=== PATIENT | male | born 1970 | race Caucasian/White ===

== ENCOUNTER 2023-10-18 01:25 | Day surgery (SDC) | payer OTHER, SELFPAY ==
[2023-10-12 17:20] VITALS: BMI 38.7
--- NOTE | 2023-10-13 09:11 | PC.NURSE ---
Report to the Outpatient Waiting Room, entrance under the green pavilion located off [facility], at 1300 on 10-18-23. Planned Procedure Time: 1500. Time changes happen often and if your time is changed the preop area will call you the afternoon before. - You and your visitor will be asked to self-screen and do not enter if you have any COVID symptoms. - A mask is optional within the hospital at this time. Patients may have clear liquids (water, carbonated beverages, clear teas, apple juice) until 3 hours prior to surgery with a maximum of 20 ounces. 1200 - No food from midnight until time of surgery - Infants may have breast milk until 4 hours before surgery, formula 6 hours prior to surgery. - Children will be allowed to drink immediately following surgery. If applicable, please bring a bottle or sippy cup to assist with drinking. Juice, water, soda, and popsicles are readily available. For infants on formula, please bring formula the day of surgery. Pacifiers are allowed. Take the following medications with a SIP of water the morning of surgery: amlodipine, atenolol DO NOT STOP ANY OF YOUR OTHER PRESCRIPTION MEDICATIONS PRIOR TO SURGERY ?EXCEPT THE FOLLOWING Medications to discontinue per physician: vitamins and supplements Date to take last dose: 10-15-23 Please no make-up, nail luxembourger, hairspray, perfume, deodorant, or body powder the day of surgery. No jewelry (including any body piercings) or valuables the day of surgery, leave them at home. Please take a shower or bath the night before, or the morning of, surgery with an antibacterial soap. Wear comfortable, loose fitting clothing. Children are encouraged to wear pajamas. - Jewelry must be removed prior to entering the operating room. Rings and piercings that are not removed may be cut off. - The hospital will not accept responsibility for valuables. - Please leave all valuables, including medications, at home the day of surgery. If you are going home after surgery, a licensed hole digger truck driver must drive you home. - NO public transportation without another adult if you receive anesthesia. - We recommend that an adult stay with you for 24 hours following discharge. - We also recommend that you do not drive, make important decision, drink alcoholic beverages, or take any drugs that were not prescribed by your health care provider for at least 24 hours after your discharge time. For Pediatric surgeries, we recommend two adults accompany the child home. Follow any additional instructions given to you from your surgeon. If you or anyone in your household have experienced Covid symptoms in the past week, please notify your surgeon or the nurse liaison at the phone number below for possible testing. Telephone instructions given to Nik Jett and asked if any additional questions and then verbalized understanding. Patient advised to call surgeon office or pre surgery nurse liaison [phone] if any additional questions.
--- NOTE | 2023-10-18 13:38 | WPDHPUPDATE1 ---
History and Physical Update Update Date/Time: 10/18/23 13:38 History and Physical has been reviewed, including an updated exam of the patient. There are NO changes in the patient's condition. Risks, benefits, and alternatives have been discussed and questions answered. Patient agrees to proceed with procedure.
[2023-10-18] MEDS: ACETAMINOPHEN 500 MG TABLET 1000 MG PO (14:00)
[2023-10-18] MEDS: LACTATED RINGERS 1,000 ML 30 ML IV CONT (14:10)
--- NOTE | 2023-10-18 14:22 | ECG_ITS ---
SEE SCANNED COPY FOR CONFIRMED REPORT MTDD
[2023-10-18 14:25] VITALS: BP 170/88; PULSE 59; RESP 18; TEMP 36.7; O2SAT 99
--- NOTE | 2023-10-18 14:34 | WPDANESEPPF ---
Anes - Initial Pre Proc Eval Procedure: Operation Date: 10/18/23 15:00 Proposed Procedures p Right Knee Arthroscopic Partial Medial and Lateral Meniscectomies - Magdi Dunbar MD Date/Time: 10/18/23 14:34 Surgeon: Magdi Dunbar MD Pre Op Diagnosis: right knee medial and lateral meniscus tears Patient Data Age: 53 Gender: M Height: 1.78 m Weight: 118.9 kg Last Vital Signs Temp 98.1 F 10/18/23 14:25 Pulse 59 L 10/18/23 14:25 Resp 18 10/18/23 14:25 BP 170/88 H 10/18/23 14:25 Pulse Ox 99 10/18/23 14:25 O2 Del Method Room Air 10/18/23 14:25 Allergies Allergy/AdvReac Type Severity Reaction Status Date / Time bupropion Allergy Severe Other Verified 10/18/23 14:32 Home Medications Medication Instructions Recorded Confirmed Type amlodipine 10 mg tablet 10 mg PO DAILY 08/31/23 10/18/23 History atenolol 50 mg tablet 50 mg PO DAILY 08/31/23 10/18/23 History atorvastatin 40 mg tablet 40 mg PO DAILY 08/31/23 10/18/23 History benazepril 20 mg tablet 20 mg PO DAILY 08/31/23 10/18/23 History celecoxib 100 mg capsule 100 mg PO DAILY 08/31/23 10/18/23 History omeprazole 40 mg capsule,delayed 40 mg PO DAILY 08/31/23 10/18/23 History release glucosamine sulfate 500 mg tablet 500 mg PO DAILY 10/12/23 10/18/23 History (Glucosamine) Patient hx anesthesia problems: none Family hx anesthesia problems: none Results Review: All pre-operative results and documents have been reviewed as part of the pre-operative evaluation. [facility] Past Medical History Medical History Anesthesia complication Combative after anesthesia for Colonoscopy/EGD, all other surgeries he was fine except some PONV Bilateral primary osteoarthritis of knee GERD without esophagitis Hyperlipidemia Hypertension Obesity Other male erectile dysfunction Plantar fasciitis PONV (postoperative nausea and vomiting) Surgical History Surgical History History of arthroscopic surgery of shoulder Rt: Repair SLAP Lesion History of arthroscopy of both knees History of colonoscopy History of facial surgery Maxillofacial Fixation History of foot surgery Fusion Left Foot Bones, Midtarsal, Osteotomy History of hernia repair History of wisdom tooth extraction Family History Family History Mother Heart failure Father Heart disease Rheumatic fever Social History Social History Smoking packs per day: 1 Smoking cigarettes per day: 20.0 Years smoked: 10 Smoking pack-years: 10.00 Smoking status: Former smoker Tobacco type: cigarettes and cigars Second hand tobacco smoke exposure: No Smoking end date: 02/29/16 Alcohol intake: current Drinks per week: 12 Alcohol use details: beer Substance use: never Substance use type: does not use Do You Feel Safe in your Home?: Yes Lack of Transportation: No Lack of Food: Never True Current Housing: I Have Housing Concerned About Future Housing: No Difficulty Paying Gas/Electric Bills: No Difficulty Paying for Meds: No Currently Unemployed: No Education: Associate Degree Difficulty w/ Childcare or Family Care: No Living arrangements: with family Spiritual care concerns: No Anes - Eval Final PreProcedure Day of Procedure 10/18/23 14:34 Patient weight: obese Heart: regular rate and rhythm Lungs: clear to auscultation Airway: Mallampati scale class 1 Neurological: alert and oriented Last oral intake: >/= 8 hours ASA classification: II Emergent: no Anesthetic plan: proceed Anesthesia type and monitoring: general LMA and standard monitoring Results Review: All pre-operative results and documents have been reviewed as part of the pre-operative evaluation. HTN, hyperlipidemia, suspect O
[2023-10-18] MEDS: KETOROLAC 15 MG/ML VIAL (*BKC) IV PUSH (14:55)
[2023-10-18] MEDS: ceFAZolin 2 GM/D5W 50 ML 2 GM/50 ML BAG IVPB (15:23)
[2023-10-18] MEDS: BUPIVACAINE/EPINEPHRINE 0.5% 50 ML VIAL 20 ML INFILTRATE (15:53)
[2023-10-18 16:30] VITALS: BP 139/93; PULSE 73; RESP 13; TEMP 36.1; O2SAT 98
--- NOTE | 2023-10-18 16:44 | W.PM.PROC2 ---
Procedure Note - Detailed Date of Procedure 10/18/23 Pre-op Diagnosis right knee medial and lateral meniscus tears Post-op Diagnosis Same Procedure Performed Arthroscopic partial medial meniscectomy with chondroplasty, right knee. Surgeon Magdi Dunbar MD Anesthesia General Findings Medial tear at the posterior root and horn and anterior horn. Minimal lateral tear required anterior horn debridement. Lateral meniscus posterior horn with 1 cm minimal undersurface splitting without instability. Left in-situ. Medial femur chondromalacia grade 4, medial tibia grade 2. Lateral femur chondromalacia grade 0, lateral tibia grade 1. Patellar grade 1, trochlea grade 4. Description of Procedure The patient was identified and the surgical site confirmed and signed in the preoperative holding area. Antibiotics were started per protocol, and the patient was brought to the operative room and transferred to the OR table. A general anesthetic was administered. Supine position with the operative lower extremity position in the leg anglin after placement of a well padded tourniquet. The leg support was lowered and the contralateral limb was supported with a soft bolster. The knee was prepped and draped in the usual sterile fashion. A time-out was performed. The portal sites were marked and infiltrated with 0.5% Marcaine 20 mL. The limb was exsanguinated and the tourniquet inflated to 300 mL Hg. Standard inferolateral and inferomedial portals were established. Inflow was obtained with the saline pump. The camera was introduced. Diagnostic inspection of the joint was accomplished. The meniscus was debrided with the arthroscopic shaver and punches until stable. The radiofrequency probe was also used for further d?bridement. Chondroplasty was performed on medial femoral condyle and trochlea. Retropatellar fat pad hypertrophy and scarring treated with gentle debridement. The arthroscopic instruments were removed. The tourniquet released and wounds closed with subcutaneous 4-0 Monocryl absorbable suture. Steri strips and a sterile dressing were applied. A light elastic wrap was placed. The patient was extubated and brought to the recovery room in stable condition. Estimated Blood Loss 5 Drains No Complications No immediate complications Condition Stable Disposition PACU [facility] Billing Surgery - Charge Forward: Surgery Billing
[2023-10-18 16:45] VITALS: BP 128/82; PULSE 64; RESP 12; O2SAT 100
[2023-10-18 17:00] VITALS: BP 126/80; PULSE 65; RESP 13; O2SAT 100
[2023-10-18 17:04] VITALS: BP 150/96; PULSE 59
[2023-10-18 17:30] VITALS: BP 131/88; PULSE 60
== END 2023-10-18 17:31 | disposition home or self-care (01) ==
PROVIDERS: Visit Provider Orthopaedic Surgery
PROC: (CPT 29870; principal; 2023-10-18 15:00)
DX: S83.241A Other tear of medial meniscus, current injury, right knee, initial encounter (principal); S83.281A Other tear of lateral meniscus, current injury, right knee, initial encounter; M94.261 Chondromalacia, right knee; M17.0 Bilateral primary osteoarthritis of knee; I10 Essential (primary) hypertension; E78.5 Hyperlipidemia, unspecified; K21.9 Gastro-esophageal reflux disease without esophagitis; N52.8 Other male erectile dysfunction; E66.9 Obesity, unspecified; Z68.37 Body mass index [BMI] 37.0-37.9, adult; Z98.890 Other specified postprocedural states; Z96.653 Presence of artificial knee joint, bilateral; Z87.891 Personal history of nicotine dependence; Z82.49 Family history of ischemic heart disease and other diseases of the circulatory system; X58.XXXA Exposure to other specified factors, initial encounter
CPT/HCPCS: 29880; 93005; A9270; J0690; J1100; J1170; J1596; J1885; J2250; J2405; J2704; J3010; J7120

== ENCOUNTER 2023-12-07 10:20 | Outpatient (CLI) | payer OTHER, SELFPAY ==
--- NOTE | ~2023-12-07 | XR_ITS ---
Left Knee Technique: AP, lateral, and sunrise views were obtained. Clinical History: Pain Findings: No fracture or dislocation is seen. Osseous alignment is anatomic. Evidence of prior ACL re construction noted. There is mild tricompartmental degenerative spurring. Possible small loose body c entrally in the joint. Soft tissues are otherwise unremarkable. No joint effusion is seen. Impression: Mild tricompartmental degenerative change. Possible small loose body centrally in the joint. Prior ACL reconstruction. Reviewed, dictated and finalized at location M. Impression: Mild tricompartmental degenerative change. Possible small loose body centrally in the joint. Prior ACL reconstruction.
== END 2023-12-07 10:21 | disposition home or self-care (01) ==
LOC: ANHIMG 10:32
PROVIDERS: Visit Provider Orthopaedic Surgery
DX: M17.0 Bilateral primary osteoarthritis of knee (principal)
CPT/HCPCS: 73564